=== PATIENT | male | born 1965 | race Caucasian/White ===

== ENCOUNTER 2017-01-19 16:45 | Outpatient (RCR) | payer OTHER | END 2017-01-31 11:14 | disposition home or self-care (01) | LOC: WSPT 16:45 | DX: M75.121 Complete rotator cuff tear or rupture of right shoulder, not specified as traumatic (principal); M19.011 Primary osteoarthritis, right shoulder | CPT/HCPCS: G0283-GP ==

== ENCOUNTER → 2020-05-20 | Outpatient (CLI) | payer OTHER | LOC: BHSO 14:56 | DX: F41.1 Generalized anxiety disorder (principal) ==

== ENCOUNTER → 2020-05-28 | Outpatient (CLI) | payer OTHER | LOC: BHSO 16:03 | DX: F41.1 Generalized anxiety disorder (principal) ==

== ENCOUNTER → 2020-06-11 | Outpatient (CLI) | payer OTHER | LOC: BHSO 15:53 | DX: F41.1 Generalized anxiety disorder (principal) ==

== ENCOUNTER → 2022-02-24 | Outpatient (CLI) | payer OTHER | LOC: COL.RAD 07:16 | DX: K76.0 Fatty (change of) liver, not elsewhere classified (principal) ==

== ENCOUNTER 2022-12-09 06:33 | Day surgery (SDC) | payer OTHER ==
[~2022-12-09] VITALS: Ht 167.6 cm; Wt 102.3 kg
[2022-12-09 07:07] VITALS: BP 144/83; PULSE 94; TEMP 97.2
[2022-12-09] MEDS ORDERED: GLUCOPHAGE1000 MG PO (07:31)
[2022-12-09] MEDS ORDERED: ULTRAM 50MG TAB50 MG PO (07:31)
[2022-12-09] MEDS ORDERED: CELEBREX 200MG200 MG PO (07:32)
[2022-12-09] MEDS ORDERED: FLOMAX 0.40.4 MG/CAP PO (07:32)
[2022-12-09] MEDS ORDERED: NEURONTIN100 MG/CAP PO (07:33)
[2022-12-09] MEDS ORDERED: PRINIVIL40 MG PO (07:33)
[2022-12-09] MEDS ORDERED: LIPITOR 80MG80 MG PO (07:34)
[2022-12-09] MEDS ORDERED: AMITRIPTYLINE H25 M1 PO (07:34)
[2022-12-09] MEDS ORDERED: ZYRTEC 10MG10 MG PO (07:35)
[2022-12-09] MEDS ORDERED: BENADRYL25 M2 PO (07:36)
[2022-12-09 08:40] VITALS: BP 118/68; PULSE 99; TEMP 97.1
[2022-12-09 08:55] VITALS: BP 136/77; PULSE 85
[2022-12-09 09:10] VITALS: BP 140/78; PULSE 83
--- NOTE | 2022-12-09 15:16 | NUR ---
0840: PATIENT TO BAY 4 PER CART FROM ENDO SUITE. PATIENT AMBULATED FROM CART TO RECLINER X2 ASSIST. VS STABLE. BREATHING EVEN AND UNLABORED. REPORT RECEIVED FROM ENDO NURSE. PATIENT REQUESTED MUFFIN AND JUICE. RESTING IN RECLINER. IN ROOM. CALL LIGHT IN REACH. 0855: VS REMAIN STABLE. PATIENT TOLERATING MUFFIN AND JUICE. PATIENT DENIES ANY NEEDS AT THIS TIME. REMAINS AT SIDE. CALL LIGHT IN REACH. 0900: DR. SINHA IN TO SPEAK WITH PATIENT AT THIS TIME. 0905: PATIENT AMBULATED FROM RECLINER TO BATHROOM WITH STEADY GAIT AND STANDBY ASSIST. 0910: VS REMAIN STABLE. DISCHARGE EDUCATION COMPLETED AT THIS TIME. PATIENT STATES UNDERSTANDING OF HOME INSTRUCTIONS. DISCHARGE PAPERWORK GIVEN TO PATIENT. IV DC'D AT THIS TIME. PATIENT DENIES ASSISTANCE WITH DRESSING. AT SIDE. 0920: PATIENT AMBULATED FROM RECLINER TO WHEELCHAIR WITH STEADY GAIT. PATIENT OFF UNIT PER WHEELCHAIR. PATIENT DISCHARGED TO HOME WITH PER PERSONAL VEHICLE.
== END 2022-12-09 09:20 | disposition home or self-care (01) ==
LOC: SDCO 06:33
DX: Z12.11 Encounter for screening for malignant neoplasm of colon (principal); D12.3 Benign neoplasm of transverse colon; E11.9 Type 2 diabetes mellitus without complications; K21.9 Gastro-esophageal reflux disease without esophagitis; Z96.41 Presence of insulin pump (external) (internal); Z79.85 Long-term (current) use of injectable non-insulin antidiabetic drugs; Z87.891 Personal history of nicotine dependence; Z79.899 Other long term (current) drug therapy
CPT/HCPCS: J2704; J7120